=== PATIENT | female | born 1990 | race Caucasian/White ===

== ENCOUNTER 2020-02-23 15:33 | Outpatient (CLI) | payer OTHER | END 2020-02-23 23:59 | disposition home or self-care (01) | LOC: CFH 15:33 | PROVIDERS: ATTEND Internal Medicine Cardiovascular Disease | DX: R00.2 Palpitations (principal); Z87.891 Personal history of nicotine dependence; F12.20 Cannabis dependence, uncomplicated | CPT/HCPCS: 93306 ==